=== PATIENT | male | born 1975 ===

== ENCOUNTER 2017-04-20 11:08 | Emergency (ER) | payer OTHER ==
[2017-04-20 11:14] VITALS: BMI 33.4
[2017-04-20 11:16] VITALS: BP 132/95; PULSE 98; RESP 20; TEMP 99.3; O2SAT 95
[2017-04-20] MEDS ORDERED: Penicillin G Benzathine 1.2 Mill Unit/2 ml Syr IM ONE ×2 (11:36→11:45)
[2017-04-20] MEDS ORDERED: Penicillin G Benzathine 2.4 Mill Unit/4 ml Syr IM ONE (11:41)
--- NOTE | 2017-04-20 11:44 | C.PDOC ---
History Of Present Illness 41 year old male presents to the ED with complaints of consistent throat pain and headache radiating to ears for 4 days. Patient reports pain worse on the left side. He reports subjective fever and painful swallowing. Patient has taken Motrin and Advil with no relief, states he "gets this infection every year " and is requesting a penicillin injection. Patient denies sob, cough, nausea, vomiting, diarrhea or any other complaints at this time. Time Seen by Provider: 04/20/17 11:25 Chief Complaint (Nursing): ENT Problem History Per: Patient History/Exam Limitations: None Onset/Duration Of Symptoms: Days Current Symptoms Are (Timing): Still Present Symptoms Have Been: Continuous Past Medical History Reviewed: Historical Data, Nursing Documentation, Vital Signs Vital Signs: Last Vital Signs Temp 99.3 F 04/20/17 11:14 Pulse 98 H 04/20/17 11:14 Resp 20 04/20/17 11:14 BP 132/95 H 04/20/17 11:14 Pulse Ox 95 04/20/17 12:01 - Medical History PMH: No Chronic Diseases Surgical History: CABG Family History: States: No Known Family Hx - Social History Hx Alcohol Use: No Hx Substance Use: No - Immunization History Hx Tetanus Toxoid Vaccination: Yes Hx Influenza Vaccination: No Hx Pneumococcal Vaccination: No Review Of Systems Constitutional: Positive for: Fever. Negative for: Chills ENT: Positive for: Ear Pain, Throat Pain Respiratory: Negative for: Cough, Shortness of Breath Gastrointestinal: Negative for: Nausea, Vomiting, Diarrhea Skin: Negative for: Rash Neurological: Positive for: Headache Physical Exam - Physical Exam Appears: Non-toxic, No Acute Distress Skin: Normal Color, Warm Head: Atraumatic, Normacephalic Eye(s): bilateral: Normal Inspection Ear(s): Bilateral: Normal Oral Mucosa: Moist Throat: Erythema (tonsillar and pharynx), No Exudate, Other (Uvula is at midline ) Neck: Normal ROM Chest: Symmetrical Cardiovascular: Rhythm Regular, No Murmur Respiratory: Normal Breath Sounds, No Rales, No Rhonchi, No Wheezing Extremity: Bilateral: Atraumatic, Normal Color And Temperature Neurological/Psych: Oriented x3, Normal Speech Gait: Steady ED Course And Treatment O2 Sat by Pulse Oximetry: 95 (RA) Pulse Ox Interpretation: Normal Medical Decision Making Medical Decision Makin41 year old male with subjective fever, throat pain which radiates to the ear and head. Exam consistent with acute pharyngitis. Patient is requesting Penicilin shot. Patient afebrile and in no acute distress. Disposition Counseled Patient/Family Regarding: Diagnosis, Need For Followup - Disposition Referrals: Naveed Quinonez MD [Staff Provider] - Disposition: HOME/ ROUTINE Disposition Time: 11:57 Condition: STABLE Additional Instructions: Take Tylenol or Motrin alternating every 4-6 hours for Fever 100.4F or higher. Rest and drink plenty of fluids to prevent dryhdration. Try vanilla ice cream to improve eating/drinking, this is cold soothing and tastes good. May also try lozenges or cepacol spary over the counter. Instructions: Pharyngitis (ED) Forms: [facility] ([place]) - POA Present On Arrival: None - Clinical Impression Clinical Impression: Pharyngitis - Scribe Statement The provider has reviewed the documentation as recorded by the Hilaryibsohail Murrell All medical record entries made by the Amari were at my direction and personally dictated by me. I have reviewed the chart and agree that the record accurately reflects my personal performance of the history, physical exam, medical decision making, and the department course for this patient. I have also personally directed, reviewed, and agree with the discharge instructions and disposition.
== END 2017-04-20 12:02 | disposition home or self-care (01) ==
LOC: C.ER 11:08
DX: J02.9 Acute pharyngitis, unspecified (principal)
CPT/HCPCS: 96372; 99283; J0561